=== PATIENT | male | born 1995 | race Caucasian/White ===

== ENCOUNTER 2017-09-08 11:50 | Emergency (ER) | payer BC ==
[2017-09-08 12:09] VITALS: BP 143/89
[2017-09-08] MEDS ORDERED: NS 0.9% 1000 ML* 1,000 ML BOLUS ONE (12:51)
[2017-09-08] MEDS ORDERED: Ketorolac INJ* 30 MG/ML 1 ML VIAL IV PUSH ONE (12:51)
[2017-09-08] MEDS ORDERED: Morphine INJ* 4 MG/ML 1 ML CARPUJECT IV PRN (12:52)
[2017-09-08] MEDS ORDERED: Ondansetron INJ* 2 MG/ML VIAL IV ONE (12:52)
--- NOTE | 2017-09-08 12:58 | UC ---
Abdominal Pain Male HPI - HPI Summary HPI Summary: Started feeling nauseated last night, some abdominal pain. Woke this morning at 0500 with nausea and vomited x 1, now feeling less nauseated but has generalized abdominal pain that is quite severe. BM last night small and hard, denies diarrhea. - History of Current Complaint Chief Complaint: UCAbdominalPain Stated Complaint: ABD PAIN Time Seen by Provider: 09/08/17 12:30 Hx Obtained From: Patient Onset/Duration: Gradual Onset, Lasting Hours Timing: Constant Severity Initially: Mild Severity Currently: Severe Location: Diffuse Radiates: No Character: Unable to describe Aggravating Factor(s): Movement, Deep Breaths Alleviating Factor(s): Rest, Position Associated Signs And Symptoms: Positive: Vomiting. Negative: Fever - Allergies/Home Medications Allergies/Adverse Reactions: Allergies Allergy/AdvReac Type Severity Reaction Status Date / Time No Known Allergies Allergy Verified 09/08/17 12:09 Home Medications: Home Medications NK [No Home Medications Reported] 09/08/17 [History Confirmed 09/08/17] PMH/Surg Hx/FS Hx/Imm Hx Previously Healthy: Yes - Surgical History Surgical History: None - Family History Known Family History: Negative: Blood Disorder - Social History Occupation: Student Lives: Alone Alcohol Use: Occasionally Substance Use Type: None Smoking Status (MU): Never Smoked Tobacco - Immunization History Most Recent Influenza Vaccination: none Review of Systems Constitutional: Negative Skin: Negative Eyes: Negative ENT: Negative Respiratory: Negative Cardiovascular: Negative Gastrointestinal: Abdominal Pain, Vomiting, Nausea Genitourinary: Negative Motor: Negative Neurovascular: Negative Musculoskeletal: Negative Neurological: Negative Psychological: Negative Is Patient Immunocompromised?: No All Other Systems Reviewed And Are Negative: Yes Physical Exam Triage Information Reviewed: Yes Appearance: Well-Nourished, Pain Distress - mod Vital Signs: Initial Vital Signs Temp 98.5 F 09/08/17 12:00 Pulse 78 09/08/17 12:00 Resp 16 09/08/17 12:00 BP 143/89 09/08/17 12:00 Pulse Ox 99 09/08/17 12:00 Vital Signs Reviewed: Yes Eye Exam: Normal Eyes: Positive: Conjunctiva Clear ENT Exam: Normal ENT: Positive: Normal ENT inspection, Hearing grossly normal, Pharynx normal, TMs normal. Negative: TM bulging, TM dull, TM red Dental Exam: Normal Neck exam: Normal Neck: Positive: Supple, Nontender, No Lymphadenopathy Respiratory Exam: Normal Respiratory: Positive: Chest non-tender, Lungs clear, Normal breath sounds, No respiratory distress, No accessory muscle use Cardiovascular Exam: Normal Cardiovascular: Positive: RRR, No Murmur Abdomen Description: Positive: Distended, Guarding, McBurney's Point Tenderness. Negative: Nontender, CVA Tenderness (R), CVA Tenderness (L) Musculoskeletal Exam: Normal Neurological Exam: Normal Neurological: Positive: Alert Psychological Exam: Normal Skin Exam: Normal Abd Pain Male Course/Dx - Differential Dx/Clinical Impression Provider Diagnoses: Acute abdominal pain - Physician Notification/Consults Discussed Patient Care With: Selene Navas Time Discussed With Above Provider: 12:56 Instructed by Provider To: MD Will See In ED Discharge - Discharge Plan Condition: Stable Disposition: TRANS HIGHER LVL OF CARE FAC Referrals: No Primary Care Phys,NOPCP [Primary Care Provider] -
== END 2017-09-08 13:22 | disposition short-term general hospital (02) ==
LOC: UCEAST 11:50
DX: R10.9 Unspecified abdominal pain (principal)
CPT/HCPCS: 99203; G0463; J1885; J2405

== ENCOUNTER 2017-09-08 13:37 | Observation (INO) | payer BC ==
[2017-09-08] MEDS ORDERED: Morphine INJ* 4 MG/ML 1 ML CARPUJECT IV ONE ×2 (14:11→16:20)
[2017-09-08] MEDS ORDERED: Ondansetron INJ* 2 MG/ML VIAL IV ONE ×2 (14:11→16:20)
[2017-09-08] MEDS ORDERED: NS 0.9% 1000 ML* 1,000 ML IV ONE (14:11)
[2017-09-08 14:54] LABS: Hematocrit 45 % (42-52); Hemoglobin 15.8 g/dl (14.0-18.0); Mean Corpuscular HGB Conc 36 g/dl (31-36); Mean Corpuscular Hemoglobin 30 pg (27-31); Mean Corpuscular Volume 84 fL (80-94); Mean Platelet Volume 8 um3 (7.4-10.4); Red Blood Count 5.31 10^6/ul (4.0-5.4); Red Cell Distribution Width 13 % (10.5-15); White Blood Count 21.7 10^3/ul (3.5-10.8)
[2017-09-08 14:56] LABS: Add Diff/Slide Review? Slide Review Added; Comments Flag Yes
[2017-09-08 15:11] LABS: Albumin 4.6 g/dL (3.2-5.2); BUN/Creatinine Ratio 19.2 (8-20); C Reactive Protein 8.19 mg/L (< 5.00); Calcium 9.3 mg/dL (8.6-10.3); EGFR African American 176.2 (>60); Globulin 2.6 g/dL (2-4); Magnesium 1.7 mg/dL (1.9-2.7); Potassium 3.7 mmol/L (3.5-5.0); Total Bilirubin 2.6 mg/dL (0.2-1.0); Total Protein 7.2 g/dL (6.4-8.9)
[2017-09-08] MEDS ORDERED: Iohexol 300* (CONTRAST) 10 ML SDV IV ONE (16:00)
--- NOTE | 2017-09-08 17:02 | RAD ---
INDICATION: RIGHT lower quadrant pain, fever, vomiting. Assess for appendicitis. COMPARISON: No relevant prior exams available on the [facility] PACS for comparison. TECHNIQUE: Multidetector CT images were obtained from the lung bases to the ischial tuberosities with 91 mL Omnipaque 300 IV and oral contrast. Multiplanar reformation. REPORT: Unremarkable visualized inferior thorax. The liver, gallbladder, pancreas, and spleen are unremarkable. Negative for CT abnormality of the upper GI or small bowel. 4 mm appendicolith within the proximal segment of the medially extending appendix. Distal to this the appendix is dilated up to 1 cm diameter. Negative for significant periappendiceal inflammatory stranding. Negative for periappendiceal abscess. Unremarkable colon. Negative for ascites, free air, hernias. Normal adrenal glands. Unremarkable kidneys with symmetric nephrograms and pyelograms. Unremarkable nondilated ureters and urinary bladder. Unremarkable visualized male urogenital structures. Negative for lymphadenopathy. Normal diameter abdominal aorta and iliac arteries. Physiologic distention of the IVC. Unremarkable osseous structures. Collins images saved on the [facility] PACS. IMPRESSION: Early acute appendicitis. Predisposing appendicolith. Negative for associated bowel obstruction or perienteric abscess. Results called to MARITZA Noland 09/08/2017 4:57 PM EST
--- NOTE | 2017-09-08 18:03 | ED ---
Abdominal Pain/Male - HPI Summary HPI Summary: Patient presents to the ED with CC of RLQ pain radiating to diffuse abdomen since 5am this morning with associated N/V. He was seen at and transferred here. Denies fevers, but notes to sweats and chills. He is otherwise healthy. Denies medications. Last PO food last evening 11pm, today fluids at 1pm. No history of abdominal surgeries. Pain is 8/10, constant and sharp. Denies C/D. He did not eat anything out of the ordinary and denies any drugs or ETOH. Does not take medications. Student, lives with friends. No sick contacts. Worse with position, better with rest. - History of Current Complaint Chief Complaint: EDAbdPain Stated Complaint: ABD PAIN, COMING FROM CC Time Seen by Provider: 09/08/17 14:03 Hx Obtained From: Patient Onset/Duration: Sudden Onset Timing: Constant Severity Initially: Moderate Severity Currently: Moderate Pain Intensity: 7 Pain Scale Used: 0-10 Numeric Location: Discrete At: RLQ Radiates: No Radiates to: Other - diffuse abdomen Character: Sharp Aggravating Factor(s): Nothing Alleviating Factor(s): Position Associated Signs And Symptoms: Positive: Diaphoresis, Nausea, Vomiting - Risk Factors Testicular Torsion: Negative Cardiac Risk Factors: Negative - Allergies/Home Medications Allergies/Adverse Reactions: Allergies Allergy/AdvReac Type Severity Reaction Status Date / Time nuts Allergy Unknown Uncoded 09/08/17 13:53 Reaction Details PMH/Surg Hx/FS Hx/Imm Hx Previously Healthy: Yes Endocrine/Hematology History: Denies: Hx Diabetes Cardiovascular History: Denies: Hx Hypertension - Immunization History Hx Pertussis Vaccination: No Immunizations Up to Date: Unable to Obtain/Confirm Infectious Disease History: No Infectious Disease History: Denies: Traveled Outside the [place] in Last 30 Days - Family History Known Family History: Negative: Blood Disorder - Social History Occupation: Unemployed, Student Lives: Dormitory/Roommates Alcohol Use: Occasionally Hx Substance Use: No Substance Use Type: Reports: None Hx Tobacco Use: No Smoking Status (MU): Never Smoked Tobacco Review of Systems Positive: Fever, Chills, Fatigue, Skin Diaphoresis ENT: Negative Cardiovascular: Negative Respiratory: Negative Positive: Abdominal Pain, Vomiting, Nausea Genitourinary: Negative Positive: no symptoms reported, see HPI Musculoskeletal: Negative Skin: Negative Psychological: Normal All Other Systems Reviewed And Are Negative: Yes Physical Exam Triage Information Reviewed: Yes Vital Signs On Initial Exam: Initial Vitals Temp Pulse Resp BP Pulse Ox 99.1 F 89 16 148/92 97 09/08/17 13:49 09/08/17 13:49 09/08/17 13:49 09/08/17 13:49 09/08/17 13:49 Vital Signs Reviewed: Yes Appearance: Positive: Ill-Appearing Skin: Positive: Diaphoretic Head/Face: Positive: Normal Head/Face Inspection Eyes: Positive: EOMI, EVELINA, Conjunctiva Clear Neck: Positive: Supple, Nontender, No Lymphadenopathy Respiratory/Lung Sounds: Positive: Clear to Auscultation, Breath Sounds Present Cardiovascular: Positive: RRR, Pulses are Symmetrical in both Upper and Lower Extremities Abdomen Description: Positive: McBurney's Point Tenderness, Other: - RLQ/ + obturator; +psoas Musculoskeletal: Positive: Normal, Strength/ROM Intact Neurological: Positive: Speech Normal Psychiatric: Positive: Affect/Mood Appropriate AVPU Assessment: Alert - Dulce Maria Coma Scale Coma Scale Total: 15 Diagnostics - Vital Signs Vital Signs Temp Pulse Resp BP Pulse Ox 09/08/17 17:31 106 112/62 98 09/08/17 17:03 18 09/08/17 17:00 100 99 09/08/17 16:00 100 133/74 100 09/08/17 15:30 103 130/73 100 09/08/17 15:00 91 143/90 98 09/08/17 14:30 134/75 09/08/17 14:26 17 09/08/17 14:01 86 97 09/08/17 14:00 146/86 09/08/17 13:49 99.1 F 89 16 148/92 97 - Laboratory Lab Results: Lab Results 09/08/17 09/08/17 09/08/17 Range/Units 14:40 14:40 14:40 WBC 21.7 H (3.5-10.8) 10^3/ul RBC 5.31 (4.0-5.4) 10^6/ul Hgb 15.8 (14.0-18.0) g/dl Hct 45 (42-52) % MCV 84 (80-94) fL MCH 30 (27-31) pg MCHC 36 (31-36) g/dl RDW 13 (10.5-15) % Plt Count 230 (150-450) 10^3/ul MPV 8 (7.4-10.4) um3 Neut % (Auto) 92.7 H (38-83) % Lymph % (Auto) 2.6 L (25-47) % Jerome % (Auto) 4.4 (1-9) % Eos % (Auto) 0 (0-6) % Baso % (Auto) 0.3 (0-2) % Absolute Neuts (auto) 20.1 H (1.5-7.7) 10^3/ul Absolute Lymphs (auto) 0.6 L (1.0-4.8) 10^3/ul Absolute Monos (auto) 1.0 H (0-0.8) 10^3/ul Absolute Eos (auto) 0 (0-0.6) 10^3/ul Absolute Basos (auto) 0.1 (0-0.2) 10^3/ul Absolute Nucleated RBC 0.04 10^3/ul Nucleated RBC % 0.2 Sodium 134 (133-145) mmol/L Potassium 3.7 (3.5-5.0) mmol/L Chloride 100 L (101-111) mmol/L Carbon Dioxide 26 (22-32) mmol/L Anion Gap 8 (2-11) mmol/L BUN 14 (6-24) mg/dL Creatinine 0.73 (0.67-1.17) mg/dL Est GFR ( Amer) 176.2 (>60) Est GFR (Non-Af Amer) 137.0 (>60) BUN/Creatinine Ratio 19.2 (8-20) Glucose 138 H (70-100) mg/dL Lactic Acid 1.2 (0.5-2.0) mmol/L Calcium 9.3 (8.6-10.3) mg/dL Magnesium 1.7 L (1.9-2.7) mg/dL Total Bilirubin 2.60 H (0.2-1.0) mg/dL AST 14 (13-39) U/L ALT 12 (7-52) U/L Alkaline Phosphatase 51 (34-104) U/L C-Reactive Protein 8.19 H (< 5.00) mg/L Total Protein 7.2 (6.4-8.9) g/dL Albumin 4.6 (3.2-5.2) g/dL Globulin 2.6 (2-4) g/dL Albumin/Globulin Ratio 1.8 (1-3) Lipase 13 (11.0-82.0) U/L Result Diagrams: 09/08/17 14:40 09/08/17 14:40 Lab Statement: Any lab studies that have been ordered have been reviewed, and results considered in the medical decision making process. Abdominal Pain Fem Course/Dx - Course Course Of Treatment: Patient presents with RLQ pain + n/v. WBC 21. Called Dr. Rod who agrees to see patient. CT abdomen shows acute appendicitis. Dr. Rod called again and spoke with Claudia in the OR who will relay message. He is taken to surgery. During the course of treatment, he is given 8mg morphine and 8mg zofran. 1L fluids. - Diagnoses Provider Diagnoses: Appendicitis Discharge - Discharge Plan Condition: Stable Disposition: ADMITTED TO [facility] [Primary Care Provider] -
[2017-09-08] MEDS ORDERED: ceFAZolin 2 GM PREMIX (*) 2 GM/50 ML BAG IVPB ONE (18:05)
[2017-09-08] MEDS ORDERED: Sodium Citrate/Citric Acid* 15 ML UDC PO ONE (20:13)
[2017-09-08] MEDS ORDERED: HYDROmorphone INJ* 1 MG/ML CARPUJECT SYRINGE ONE (20:21)
[2017-09-08] MEDS ORDERED: Sodium Citrate/Citric Acid* 15 ML UDC ONE (21:01)
[2017-09-08] MEDS ORDERED: Succinylcholine* 20 MG/ML 10 ML VIAL ONE (21:09)
[2017-09-08] MEDS ORDERED: Bupivacaine 0.25% SDV* 30 ML ONE (21:10)
[2017-09-08] MEDS ORDERED: Bupivacaine 0.5% SDV PF* 30 ML VIAL ONE (21:10)
[2017-09-08] MEDS ORDERED: fentaNYL* 50 MCG/ML 5 ML VIAL (250 MCG VIAL) ONE (21:14)
[2017-09-08] MEDS ORDERED: Propofol* 10 MG/ML 20 ML BTL IV PUSH ONE (21:14)
[2017-09-08] MEDS ORDERED: Lidocaine 2% PF * 5 ML VIAL ONE (21:14)
[2017-09-08] MEDS ORDERED: Ibuprofen TAB* 600 MG PO PRN (21:15)
[2017-09-08] MEDS ORDERED: Ondansetron INJ* 2 MG/ML VIAL IV PRN (21:15)
[2017-09-08] MEDS ORDERED: Ketorolac INJ* 30 MG/ML 1 ML VIAL ONE (21:31)
[2017-09-08] MEDS ORDERED: diPHENhydraMINE IV* 50 MG/ML 1 ml VIAL (BENADRYL) ONE (21:41)
[2017-09-08] MEDS ORDERED: fentaNYL* 50 MCG/ML 2 ML VIAL (100 MCG VIAL) ONE (21:43)
--- NOTE | 2017-09-08 22:11 | SURGPN ---
Brief Operative Note - Surgery Procedures: Pre-OP Diagnoses: acute appendicitis Post-op Diagnosis: same Procedure: Laparoscopic appendectomy Surgeon: Marcel Asst: none Anethesia: MANOLOA EBL: minimal IVF: crystalloid Specimen: appendix Drains: none
[2017-09-08] MEDS ORDERED: HYDROcodone/ACETAMIN 5-325 MG* 1 TAB PO PRN (22:59)
[2017-09-08] MEDS ORDERED: fentaNYL* 50 MCG/ML 2 ML VIAL (100 MCG VIAL) IV PRN (22:59)
[2017-09-08] MEDS ORDERED: PROCHLORPERAZINE INJ 5 MG/ML 2 ML VIAL IV PRN (22:59)
[2017-09-08] MEDS ORDERED: oxyCODONE/Acetamin 5/325 MG* TAB PO PRN (22:59)
--- NOTE | 2017-09-09 02:32 | HP ---
CC: [facility] * HISTORY AND PHYSICAL: DATE OF ADMISSION: 09/08/17 LOCATION: Emergency room. HISTORY OF PRESENT ILLNESS: I was contacted by the emergency room to evaluate Mr. Burr, a 21-year-old gentleman, who presented to Urgent Care, then on to [facility] with complaints of right lower quadrant pain as well as nausea and vomiting. The patient describes onset of symptoms yesterday with upper abdominal pain. It is accompanied with nausea, vomiting, and decreased appetite. The patient had multiple episodes and pain now is mostly in the right lower quadrant and lower abdomen. It is more severe throughout the day. Pain is relieved with rest and narcotics. The patient denies any previous similar symptoms. Pain is nonradiating. PAST MEDICAL HISTORY: None. PAST SURGICAL HISTORY: None. MEDICATIONS: None. ALLERGIES: To NUTS. FAMILY HISTORY: No history of ulcerative colitis or Crohn's disease. Mom and dad alive and healthy. SOCIAL HISTORY: He does not smoke. He drinks occasionally. No IV drug abuse. He is an [employer] student. REVIEW OF SYSTEMS: No fevers, no chills. No cardiovascular disease. No cerebrovascular disease. Abdominal complaints as described. No dysuria. Good exercise tolerance. No bleeding or clotting disorders. PHYSICAL EXAMINATION GENERAL: He is alert and oriented x3, he is in mild distress. VITAL SIGNS: The patient is 150 pounds, 5 feet 10 inches, and body mass index 21.5. Temperature 99.1, blood pressure 134/75, heart rate upon arrival is 80 and now it is in the low 100s, O2 sat 97% with respirations of 17. HEENT: Normocephalic, atraumatic. Sclerae anicteric. Mucous membranes are moist. NECK: Shows no lymphadenopathy. LUNGS: Clear. ABDOMEN: Soft, nondistended, tender in the periumbilical region and in the right lower quadrant with positive guarding and tenderness to percussion. Negative Rovsing sign. Negative psoas sign. No CVA tenderness. EXTREMITIES: Within normal limits, with no edema. RECTAL: Not performed. DIAGNOSTIC STUDIES/LAB DATA: The patient underwent routine labs, which showed white count of 22 with left shift. H and H normal. VRJ-kix-yitwzfjhum ratio of 19.2. Elevated bilirubin of 2.6. Mildly elevated CRP. The patient underwent CAT scan of the abdomen and pelvis. These images as well as report reviewed and were consistent with acute appendicitis with appendicolith, no evidence of abscess, no free fluid, no free air. IMPRESSION AND PLAN: Acute appendicitis. I recommend IV fluids, antibiotics, and surgical intervention with laparoscopic appendectomy. Outlined the details of procedure of laparoscopic appendectomy, going over the risks, benefits, and alternatives. We spoke about watchful waiting. The patient wishes to proceed. He is in significant discomfort despite narcotics. We also spoke of the possible complications which include, but not limited to, bleeding, infection, bowel or bladder injury, need for additional procedure, need for open procedure , abscess formation. The patient's questions were answered and consent signed. He was marked appropriately and will be bringing him to the OR as soon as we can. [id number]/[facility] #: [id number] JOAQUÍN
[2017-09-09] MEDS: oxyCODONE/Acetamin 5/325 MG* TAB PO PRN ×2 (05:34→11:47)
--- NOTE | 2017-09-09 08:04 | OP ---
CC: [facility] * DATE OF OPERATION: 09/08/17 - ROOM #339 DATE OF : [birth year] SURGEON: Christopher Rod MD SAMPLE BODY BUILDER: None. ANESTHESIOLOGIST: Dr. Sushant Mcmullen. ANESTHESIA: General anesthesia. PRE-OP DIAGNOSIS: Acute appendicitis. POST-OP DIAGNOSIS: Acute appendicitis. OPERATIVE PROCEDURE: Laparoscopic appendectomy. ESTIMATED BLOOD LOSS: Minimal. FLUIDS: Minimal crystalloid fluid given. SPECIMEN: Appendix. COUNTS: Lap pad count and instrument count correct at the end of the procedure. DESCRIPTION OF PROCEDURE: The patient was identified in the preoperative area and marked, brought to the operating room, placed on the operating table supine position. Preoperative antibiotics were given. Sequential devices were placed on bilateral lower extremities. General anesthesia was induced. Patient's abdomen was prepped and draped in the standard surgical fashion. Time-out was performed. Infraumbilical incision was made. This was deepened down to the anterior fascia , which was elevated and the Veress needle inserted into the abdominal cavity, which was then allowed to insufflate to a pressure of 15 mmHg. Patient tolerated the insufflation well. Veress needle was removed and a 12 mm trocar was inserted through this. Laparoscope was inserted and there was no evidence of injury from the trocar insertion for the Veress needle. Additional trocars were then placed in the following position: Two 5 mm, one in the suprapubic area and one in the left lower quadrant. Table was repositioned right side up in Trendelenburg position. Small bowel was rotated out of the way medially and superiorly and we can see the base of the appendix, which appeared healthy which then extended to a severely inflamed appendix extending down towards the pelvis. The tip of the appendix was bluntly removed from the pelvic sidewall. Electrocautery was used to free the attachments of the lateral aspect of the appendix and then the ligament of Treitz was also taken off of the appendiceal mesentery with electrocautery. Once we had this, we got around the appendix for health tissue and a 45-mm mcgrath SANDRA stapling device was fired to this. Next, the electrocautery was used to free the mesentery at the base of the appendix until we could identify the appendiceal artery. This was then transected with 45-mm sanchez SANDRA stapling device. Appendix was then placed in endoscopic retrieval bag. Review of the staple line showed no enteric contents, no bleeding. The appendix was then removed through the umbilical port site with the endoscopic retrieval bag, passed off as specimen. The defect at this site was then closed with a Weck closure device using an 0 Polysorb suture in a simple fashion. The additional trocars were removed under direct vision and the abdomen was allowed to collapse. All three skin incisions were reapproximated with 4-0 Monocryl subcuticular sutures followed by Steri-Strips and sterile dressing. [id number]/[facility] #: [id number] [facility]ERSolo
--- NOTE | 2017-09-09 08:26 | PN ---
Progress Note - Progress Note Date of Service: 09/09/17 SOAP: Subjective: Sleeping, appears comfortable. Awaken with no issues, reports occasional incisional pain. Slept good, has not tried any PO intake yet. No nausea, vomiting, fever or chills. Objective: Awake and alert, in NAD Vitals reviewed, Tmax 100.8 Abdomen soft, ND. Mild LLQ tenderness. No guarding or rigidity. Incisions clean and dry. Lungs CTA Heart RRR, no murmurs Ext. without edema I/O reviewed Assessment: POD#1, s/p laparoscopic appendectomy, doing well Plan: Ambulate Breakfast and PO fluids Home later this AM with analgesics, ? PO antibiotics on d/c
[2017-09-09 11:38] VITALS: BP 110/60
--- NOTE | 2017-09-16 16:29 | DS ---
DISCHARGE SUMMARY: DATE OF ADMISSION: 09/08/17 DATE OF DISCHARGE: 09/09/17 PATIENT OF: Christopher Rod MD ADMITTING DIAGNOSES: 1. Abdominal pain. 2. Leukocytosis. 3. Acute appendicitis. DISCHARGE DIAGNOSES: 1. Abdominal pain. 2. Leukocytosis. 3. Acute appendicitis. ADMITTING PHYSICIAN: Christopher Rod MD CONSULTATIONS: None. PROCEDURE: Laparoscopic appendectomy on 09/08/17. HISTORY OF PRESENT ILLNESS: Jaziel is a pleasant 21-year-old gentleman who presented to the emergenc y room on 09/08/17 with complaints of worsening right lower quadrant abdominal pain. The patient not es that his pain started roughly yesterday with associated nausea and had multiple episodes of vomiti ng as well. His pain was mostly localized in the right lower quadrant and lower abdomen during the wh ole day prior to his presentation. He was seen in the emergency room and laboratory workup was consi stent with elevated white blood count as well as slight elevation in his bilirubin. He had a classic presentation for acute appendicitis that was confirmed with CT scan of the abdomen and pelvis that r evealed evidence of acute appendicitis with fecalith. Given his ongoing symptoms, the patient was se en by Dr. Rod and was admitted in anticipation for surgery. HOSPITAL COURSE: The patient was taken from the emergency room to the operating room on the same day where he underwent laparoscopic appendectomy. His surgery went quite smoothly with no immediate com plications. After recovery, the patient was transferred to the surgical floor for observation overrust. He received intravenous antibiotic prophylaxis and narcotics for pain management. He did relat ively well with only mild incisional discomfort that was well tolerated. He started on clear liquid diet on the following morning that he tolerated well and continued to improve during the day. He was ambulatory out of bed and he had no complaints prior to discharge. He was seen on the following mor janeen and examined at bedside. His abdomen was nontender on exam and his incision appeared clear and intact. He was discharged home in a stable condition and will be followed up in the office as an out patient. DISCHARGE MEDICATIONS: Include: 1. Percocet 5/325 mg 1 to 2 tablets q.6 hours as needed for pain. 2. Augmentin 875 mg 1 tablet twice daily for 5 days. PROBLEM LIST: Acute appendicitis, status post laparoscopic appendectomy on 09/08/17. MARITZA CASTRO [id number]/[facility] #: [id number]
== END 2017-09-09 12:05 | disposition home or self-care (01) ==
LOC: ED 13:37 → SSU 21:12
PROVIDERS: ADMIT Surgery; ATTEND Surgery
PROC: 0DTJ4ZZ Resection of Appendix, Percutaneous Endoscopic Approach (ICD-10-PCS; principal; 2017-09-08 21:39)
DX: K35.80 Unspecified acute appendicitis (principal)
CPT/HCPCS: 36415; 74177; 80053; 83605; 83690; 83735; 85025; 86140; 87040; 87076; 87205; 88304; 96374; 96375; 96376; 99283; A9270-GY; C1776; G0378; J0330; J0690; J1170; J1200; J1885; J2270; J2405; J2704; J3010; Q9967